=== PATIENT | male | born 1970 | race Two or more races ===

== ENCOUNTER 2017-04-06 08:52 | Inpatient (IN) | payer MEDICAID, OTHER ==
[~2017-04-06] VITALS: Ht 172.7 cm; Wt 74.6 kg
[~2017-04-06 08:52] MED LIST: ATO40T PO; METF-372 PO; OMEP20CA74 OR
[2017-04-06 09:40] LABS: Basophils # (auto) 0.1 uL; Basophils % (auto) 1.2 % (0.0-2.0); CONDITION Y; DEFINITIVE SEE PRINTOUT; Eosinophils # (auto) 0.1 uL; Eosinophils % (auto) 2.7 % (0.0-7.0); Hemoglobin 19.9 g/dL (13.5-17.5); Lymphocytes % (auto) 36.6 % (10.0-50.0); Mean Corpuscular Hgb Conc. 34.3 g/dL (32.0-36.0); Mean Corpuscular Volume 93.2 fL (80.0-100.0); Mean Platelet Volume 7.3 fL (7.4-10.4); Monocytes # (auto) 0.4 uL; Monocytes % (auto) 7.2 % (0.0-12.0); Neutrophils # (auto) 2.9 uL; Neutrophils % (auto) 52.3 % (37.0-80.0); Platelet Count (auto) 230 10^3/uL (140-450); Red Cell Distribution Width 13.2 % (11.6-16.0); White Blood Cell 5.6 10^3/uL (4.4-10.8)
[2017-04-06 09:47] LABS: Hematocrit 57.9 % (41.0-53.0)
[2017-04-06 09:51] LABS: Urine RBC None Seen /hpf (0 - 3)
[2017-04-06 09:55] LABS: Urine Bilirubin Negative (Negative); Urine Blood Negative /uL (Negative); Urine Color Yellow (Yellow); Urine Glucose 1+ mg/dL (Normal); Urine Ketone Negative (Negative); Urine Nitrite Negative (Negative); Urine Urobilinogen Normal (Negative)
[2017-04-06 10:02] LABS: Albumin 3.8 g/dL (3.4-5.0); BUN/Creatinine Ratio 9.1; Calcium 9.1 mg/dL (8.5-10.1); Potassium 4.2 mmol/L (3.5-5.1)
[2017-04-06 10:14] LABS: Bilirubin, Total 0.5 mg/dL (0.2-1.0); Total Protein 7.1 g/dL (6.4-8.2)
[2017-04-06] MEDS ORDERED: TEMAZEPAM 15 MG CAP PO PRN (11:30)
[2017-04-06] MEDS ORDERED: MORPHINE SULF INJ 2 MG/ML SYRINGE 1ML IV PRN (11:30)
[2017-04-06] MEDS ORDERED: ONDANSETRON HCL 4 MG/2 ML VIAL IV PRN (11:30)
[2017-04-06] MEDS ORDERED: DOCUSATE SOD 100 MG CAP PO PRN (11:30)
[2017-04-06] MEDS ORDERED: KETOROLAC TROMETH 30 MG/ML 1ML VIAL IV ONE (11:30)
[2017-04-06] MEDS ORDERED: ACETAMINOPHEN 325 MG TAB PO PRN (11:30)
[2017-04-06] MEDS ORDERED: SODIUM CHLORIDE 0.9% 1,000 ML IV ONE (11:30)
[2017-04-06] MEDS ORDERED: THIAMINE INJ 100 MG, MULTIPLE VITAMIN 10 ML, FOLIC ACID 1 MG, MAGNESIUM SULF SDV 50% 8 ... IV SCH ×10 (11:45→12:56)
[2017-04-06] MEDS ORDERED: PANTOPRAZOLE 40 MG TAB PO ONE (11:45)
[2017-04-06] MEDS ORDERED: chlordiazePOXIDE HCL 25 MG CAP PO PRN (11:45)
[2017-04-06] MEDS ORDERED: ATENOLOL 25 MG TAB PO ONE (11:45)
[2017-04-06] MEDS ORDERED: PHYTONADIONE (VIT K)10 MG/ML 1ML VIAL SUBCUT ONE (11:45)
[2017-04-06 11:55] LABS: INR 0.96 (0.9-1.15); Prothrombin Time 10.5 sec (9.37-12.3)
[2017-04-06] MEDS ORDERED: ALUM & MAG HYDROX-SIMETH LIQ(MAALOX) 30 ML PO PRN (12:00)
[2017-04-06] MEDS ORDERED: DEXTROSE (50%) 50ML SYRG IV PRN (12:15)
[2017-04-06] MEDS: HYDROcodone-ACET 5/325MG TAB PO PRN ×3 (12:57→22:30)
[2017-04-06] MEDS: SODIUM CHLOR 0.9% PF (SALINE LOCK) 10ML VIAL IV SCH ×2 (13:51→22:46)
[2017-04-06 16:05] VITALS: BP 128/79
[2017-04-06] MEDS ORDERED: TURM500C3 PO (16:19)
[2017-04-06] MEDS ORDERED: GING500C2 PO (16:19)
[2017-04-06] MEDS ORDERED: [UNRECOGNIZED DRUG - CODE] PO (16:19)
[2017-04-06] MEDS ORDERED: ASPI81TA27 PO (16:19)
[2017-04-06] MEDS ORDERED: OMEG120015 PO (16:19)
[2017-04-06 16:42] VITALS: BP 128/79
[2017-04-06] MEDS: ACCU-CHEK COMFORT CURVE STRIP VI SCH ×2 (16:54→22:36)
[2017-04-06] MEDS: InsuLIN REG 1unit/0.01ml Soln (100units/ml) SC SCH ×2 (17:05→22:00)
[2017-04-06 21:37] VITALS: BP 142/59
[2017-04-06 21:39] VITALS: BP 144/87
[2017-04-06] MEDS ORDERED: FAMOTIDINE 20 MG TAB PO SCH (22:00)
[2017-04-06] MEDS: ATENOLOL 25 MG TAB PO SCH (22:35)
[2017-04-06] MEDS: ASCORBIC ACID 500 MG TAB PO SCH (22:36)
[2017-04-07 05:25] VITALS: BP 130/83
[2017-04-07] MEDS: SODIUM CHLOR 0.9% PF (SALINE LOCK) 10ML VIAL IV SCH ×2 (06:01→14:00)
[2017-04-07 06:07] LABS: Basophils # (auto) 0.1 uL; Basophils % (auto) 1.3 % (0.0-2.0); CONDITION Y; Eosinophils # (auto) 0.1 uL; Eosinophils % (auto) 1.7 % (0.0-7.0); Hematocrit 53.7 % (41.0-53.0); Hemoglobin 18.6 g/dL (13.5-17.5); Lymphocytes # (auto) 2.5 uL; Lymphocytes % (auto) 47.4 % (10.0-50.0); Mean Corpuscular Hemoglobin 32.3 pg (28.0-32.0); Mean Corpuscular Hgb Conc. 34.7 g/dL (32.0-36.0); Mean Corpuscular Volume 92.9 fL (80.0-100.0); Mean Platelet Volume 7.8 fL (7.4-10.4); Monocytes # (auto) 0.3 uL; Monocytes % (auto) 6.1 % (0.0-12.0); Neutrophils # (auto) 2.3 uL; Neutrophils % (auto) 43.5 % (37.0-80.0); Platelet Count (auto) 212 10^3/uL (140-450); Red Cell Distribution Width 13.6 % (11.6-16.0); White Blood Cell 5.2 10^3/uL (4.4-10.8)
[2017-04-07 06:15] LABS: Albumin 3.4 g/dL (3.4-5.0); BUN/Creatinine Ratio 13.2; Potassium 4.1 mmol/L (3.5-5.1)
[2017-04-07 06:18] LABS: Bilirubin, Total 0.5 mg/dL (0.2-1.0); Total Protein 6.4 g/dL (6.4-8.2)
[2017-04-07] MEDS: InsuLIN REG 1unit/0.01ml Soln (100units/ml) SC SCH ×2 (06:55→11:30)
[2017-04-07] MEDS: ACCU-CHEK COMFORT CURVE STRIP VI SCH ×2 (06:55→11:30)
[2017-04-07] MEDS: HYDROcodone-ACET 5/325MG TAB PO PRN ×2 (07:00→14:37)
[2017-04-07 09:00] VITALS: BP 124/82
[2017-04-07] MEDS: ASCORBIC ACID 500 MG TAB PO SCH (09:55)
[2017-04-07] MEDS: ATENOLOL 25 MG TAB PO SCH (09:56)
[2017-04-07] MEDS ORDERED: ZINC SULFATE 220 MG CAP PO SCH (10:00)
[2017-04-07] MEDS ORDERED: TURMERIC 1000 MG PO SCH (10:00)
[2017-04-07] MEDS ORDERED: FISH OIL 1200 MG PO SCH (10:00)
[2017-04-07] MEDS ORDERED: GINGER ROOT 500 MG PO SCH (10:00)
[2017-04-07] MEDS ORDERED: PANTOPRAZOLE 40 MG TAB PO SCH (10:00)
[2017-04-07] MEDS ORDERED: MULTIPLE VITAMIN TAB PO SCH (10:00)
[2017-04-07] MEDS ORDERED: THIAMINE INJ 100 MG, MULTIPLE VITAMIN 10 ML, FOLIC ACID 1 MG, MAGNESIUM SULF SDV 50% 8 ... IV SCH ×5 (12:27)
[2017-04-07 13:00] VITALS: BP_SYST 112; BP_SYST 143; BP_DIAS 71
[2017-04-07 17:00] VITALS: BP 138/88
[2017-04-07 17:30] VITALS: BP 112/71
== END 2017-04-07 18:50 | disposition home or self-care (01) | DRG 552 ==
LOC: ER 08:57 → TELE 08:58 → WEST WING 15:22
PROVIDERS: ADMIT Internal Medicine; ATTEND Internal Medicine
DX: M62.830 Muscle spasm of back (principal); D75.1 Secondary polycythemia; N28.89 Other specified disorders of kidney and ureter; K21.9 Gastro-esophageal reflux disease without esophagitis; K59.00 Constipation, unspecified; E78.5 Hyperlipidemia, unspecified; E11.9 Type 2 diabetes mellitus without complications; E78.00 Pure hypercholesterolemia, unspecified; N28.1 Cyst of kidney, acquired; M54.5 Low back pain; Z72.89 Other problems related to lifestyle; Z83.3 Family history of diabetes mellitus; Z79.899 Other long term (current) drug therapy
CPT/HCPCS: 36415; 74176; 76775; 80053; 81001; 82962; 83036; 85025; 85610; 87086; 93306; 96361; 96365; 96372; 96375; J1815; J1885; J3430

== ENCOUNTER 2019-06-10 21:14 | Emergency (ER) | payer MEDICAID, OTHER ==
[~2019-06-10] VITALS: Ht 175.3 cm; Wt 76.2 kg
[~2019-06-10 21:14] MED LIST changes: +ASPI-404 PO; +GING500C2 PO; +OMEG120015 PO; +TURM500C3 PO; +[UNRECOGNIZED DRUG - CODE] PO
[2019-06-10 23:28] VITALS: BP 158/91
[2019-06-10] MEDS ORDERED: HYDROcodone-ACET 10/325MG TAB PO ONE (23:45)
[2019-06-10] MEDS ORDERED: BACLOFEN 10 MG TAB PO ONE (23:45)
== END 2019-06-11 00:58 | disposition home or self-care (01) ==
LOC: ER 21:23
DX: M62.838 Other muscle spasm (principal); M54.2 Cervicalgia; E11.9 Type 2 diabetes mellitus without complications; E78.5 Hyperlipidemia, unspecified; Z79.84 Long term (current) use of oral hypoglycemic drugs; Z79.82 Long term (current) use of aspirin; Z79.899 Other long term (current) drug therapy
CPT/HCPCS: 71101

== ENCOUNTER 2019-07-11 02:00 | Emergency (ER) | payer MEDICAID ==
[~2019-07-11] VITALS: Ht 175.3 cm; Wt 86.2 kg
[2019-07-11 02:31] LABS: Basophils # (auto) 0.1 uL; Basophils % (auto) 2.1 % (0.0-2.0); Eosinophils # (auto) 0.1 uL; Eosinophils % (auto) 1.4 % (0.0-7.0); Lymphocytes # (auto) 1.7 uL; Monocytes # (auto) 0.3 uL; Monocytes % (auto) 5.3 % (0.0-12.0); Neutrophils # (auto) 3.6 uL; Neutrophils % (auto) 62.2 % (37.0-80.0); Nucleated Red Blood Cells % 0.1 %; Platelet Count (auto) 180 10^3/uL (140-450); White Blood Cell 5.8 10^3/uL (4.4-10.8)
[2019-07-11 02:48] LABS: Albumin 3.7 g/dL (3.4-5.0); BUN/Creatinine Ratio 11.3; Calcium 8.2 mg/dL (8.5-10.1)
[2019-07-11 03:03] LABS: Bilirubin, Total 0.3 mg/dL (0.2-1.0); Total Protein 7.2 g/dL (6.4-8.2)
[2019-07-11 03:07] LABS: Potassium 2.9 mmol/L (3.5-5.1)
[2019-07-11 03:09] LABS: Hematocrit 43.2 % (41.0-53.0); Hemoglobin 15.6 g/dL (13.5-17.5); Red Blood Cells 4.83 10^6/uL (4.5-5.90)
[2019-07-11 03:10] LABS: Mean Corpuscular Hemoglobin 32.2 pg (28.0-32.0); Mean Corpuscular Volume 89.5 fL (80.0-100.0)
[2019-07-11] MEDS ORDERED: POTASSIUM CHL 20MEQ/100ML 100 ML IV ONE (03:15)
[2019-07-11] MEDS ORDERED: SODIUM CHLORIDE 0.9% 1,000 ML IV ONE ×2 (07:03)
[2019-07-11] MEDS ORDERED: THIAMINE 100mg/ml INJ (200mg/2ml VIAL) IV ONE (07:15)
[2019-07-11 09:00] VITALS: BP 93/50
== END 2019-07-11 09:57 | disposition home or self-care (01) ==
LOC: EDBD 02:00 → ER 02:01
DX: S01.01XA Laceration without foreign body of scalp, initial encounter (principal); F10.129 Alcohol abuse with intoxication, unspecified; E86.0 Dehydration; E44.1 Mild protein-calorie malnutrition; E87.6 Hypokalemia; E11.9 Type 2 diabetes mellitus without complications; E78.5 Hyperlipidemia, unspecified; I10 Essential (primary) hypertension; Z68.28 Body mass index [BMI] 28.0-28.9, adult; Y90.9 Presence of alcohol in blood, level not specified; W01.0XXA Fall on same level from slipping, tripping and stumbling without subsequent striking against object, initial encounter; Y93.89 Activity, other specified; Y92.89 Other specified places as the place of occurrence of the external cause; Y99.8 Other external cause status
CPT/HCPCS: 36415; 70450; 72125; 80053; 80320; 85025; 96361; 96365; 96366; 96375; 99284; J3411; J3480; J7030